=== PATIENT | female | born 1945 | race Caucasian/White ===

== ENCOUNTER 2016-12-16 10:26 | Emergency (ER) | payer MEDICARE ==
[~2016-12-16] VITALS: Ht 167.6 cm; Wt 57.9 kg
[~2016-12-16 10:26] MED LIST: BP MED; ESTR.9; GEMF600
[2016-12-16 10:33] VITALS: BP 190/98; PULSE 98; RESP 18; TEMP 98.1; O2SAT 95
--- NOTE | 2016-12-16 10:51 | PD ---
HPI Chief Complaint: Fall Time Seen by Provider: 10:51 Travel History International Travel<30 days: No Contact w/Intl Traveler<30days: No Traveled to known affect area: No History of Present Illness HPI Patient says she slipped and fell and tried to break her fall with her left extended arm 5 days ago. Since then patient has been having pain in her wrist area on the left arm. She wanted to come and be checked. She is otherwise fine and in no apparent distress. There is a little bit of bruising and swelling over the wrist. [facility] Past Medical History Narrative Medical List of her past medical, surgical, social and family history was reviewed. Arthritis: No High Cholesterol: Yes Hypertension: Yes Menopausal: Yes Tubal Ligation: Yes Past Surgical History Abdominal Surgery: Yes (HERNIA REPAIR) Social History Alcohol Use: No Tobacco Use: Yes (1 PPD) Substance Use: No Allergies-Medications (Allergen,Severity, Reaction): Coded Allergies: No Known Allergies (Unverified , 12/16/16) Comments List of her allergies reviewed from the nursing note. Reported Meds & Prescriptions Reported Meds & Active Scripts Active Reported Synthroid (Levothyroxine Sodium) 25 Mcg Tab 25 Mcg PO DAILY Metoprolol Tartrate 25 Mg Tab 25 Mg PO DAILY Metformin (Metformin HCl) 500 Mg Tab 500 Mg PO BIDPC With meals Narrative Medication List of her home medications reviewed from the nursing note. Review of Systems Except as stated in HPI: all other systems reviewed are Neg Physical Exam Narrative GENERAL: Awake, alert, no obvious distress SKIN: Focused skin assessment warm/dry. Slight bruising and swelling of her left wrist on the extensor surface. Decent range of motion HEAD: Atraumatic. Normocephalic. EYES: Pupils equal and round. No scleral icterus. No injection or drainage. ENT: No nasal bleeding or discharge. Mucous membranes pink and moist. NECK: Trachea midline. No JVD. CARDIOVASCULAR: Regular rate and rhythm. No murmur appreciated. RESPIRATORY: No accessory muscle use. Clear to auscultation. Breath sounds equal bilaterally. GASTROINTESTINAL: Abdomen soft, non-tender, nondistended. Hepatic and splenic margins not palpable. MUSCULOSKELETAL: No obvious deformities. No clubbing. No cyanosis. No edema. NEUROLOGICAL: Awake and alert. No obvious cranial nerve deficits. Motor grossly within normal limits. Normal speech. PSYCHIATRIC: Appropriate mood and affect; insight and judgment normal. Data Data Last Documented VS Orders Wrist, Complete ([id number]) (12/16/16 ) Splint Or Brace Apply/Monitor (12/16/16 12:04) Cockup Hand Splint (12/16/16 ) MDM Medical Decision Making Medical Screen Exam Complete: Yes Emergency Medical Condition: Yes Medical Record Reviewed: Yes Differential Diagnosis Wrist sprain, fracture Narrative Course 12 PM x-ray was back and does not show any fracture. I'll apply a wrist splint and discharge her home. Procedures EKG Prior to Arrival: No Diagnosis Primary Impression: Wrist sprain Qualified Code: S63.502A - Wrist sprain, left, initial encounter Referrals: Primary Care Physician 3 days Additional Instructions: Please return to the ER if the condition worsens or any other new concerns. Keep the splint on at all times of the day. Follow-up with your primary care in couple days. Med/Other Pt SpecificInfo: No Change to Meds Disposition: DISCHARGE HOME Condition: Morelia Alicea MD Dec 16, 2016 10:51 in couple days. Med/Other Pt SpecificInfo: No Change to Meds Disposition: DISCHARGE HOME Condition: Morelia Alicea MD Dec 16, 2016 10:51
[2016-12-16] MEDS ORDERED: SYNT25TA PO (10:57)
[2016-12-16] MEDS ORDERED: METF500T PO (10:57)
[2016-12-16] MEDS ORDERED: METO25TA3 PO (10:57)
--- NOTE | 2016-12-16 11:49 | RADHPO ---
EXAM DATE/TIME: 12/16/2016 11:29 [facility] COMPARISON: No previous studies available for comparison. INDICATIONS : Left wrist pain after slipping and falling Monday. MEDICAL HISTORY : Hypertension. Diabetes mellitus type II. SURGICAL HISTORY : None. ENCOUNTER: Initial ACUITY: 1 day PAIN SCORE: 5/10 LOCATION: Left medial wrist. FINDINGS: There are degenerative changes present in the carpus. Alignment is anatomic. A fracture is not appr eciated. CONCLUSION: Degenerative changes. Otherwise, negative. Je Finch MD FACR on December 16, 2016 at 11:40 Board Certified Radiologist. This report was verified electronically.
[2016-12-16 12:05] VITALS: BP 178/88; PULSE 73; RESP 14; O2SAT 94
== END 2016-12-16 12:10 | disposition home or self-care (01) ==
LOC: PHED 10:26
DX: S63.502A Unspecified sprain of left wrist, initial encounter (principal); E78.00 Pure hypercholesterolemia, unspecified; I10 Essential (primary) hypertension; F17.210 Nicotine dependence, cigarettes, uncomplicated; W01.0XXA Fall on same level from slipping, tripping and stumbling without subsequent striking against object, initial encounter; Y93.9 Activity, unspecified; Y92.9 Unspecified place or not applicable; Y99.8 Other external cause status
CPT/HCPCS: 73110; 99283; L3908

== ENCOUNTER 2017-08-30 09:54 | Inpatient (IN) | payer MEDICARE ==
[~2017-08-30] VITALS: Ht 167.6 cm; Wt 56.0 kg
[2017-08-30] VITALS (13 sets, daily range): BP systolic 119–147; BP diastolic 65–88; PULSE 43–78; RESP 18–22; TEMP 97.3–98.6; O2SAT 95–100
[~2017-08-30 09:54] MED LIST changes: -BP MED; -ESTR.9; -GEMF600; +METF500T PO; +METO25TA3 PO; +SYNT25TA PO
[2017-08-30] MEDS ORDERED: SODIUM CHLORIDE 0.9% FLUSH 10 ML FLUSH IVF PRN (10:00)
[2017-08-30] MEDS ORDERED: NITROGLYCERIN 0.4 MG SL 25 TABS/BTL SL STA (10:00)
[2017-08-30] MEDS ORDERED: SODIUM CHLOR 0.9% 1000 ML INJ 1,000 ML IV ONE (10:00)
[2017-08-30] MEDS ORDERED: HEPARIN SODIUM - IV 10,000 UNITS/10 ML VIAL IV PUSH STA (10:00)
[2017-08-30] MEDS ORDERED: NITROGLYCERIN-D5W 50 MG/250 ML 250 ML IV PRN (10:00)
[2017-08-30] MEDS ORDERED: HEPARIN-NS/PF INJ 1,000 ML ONE (10:07)
[2017-08-30] MEDS ORDERED: MIDAZOLAM HCL 5 MG/5 ML VIAL ONE (10:08)
[2017-08-30] MEDS ORDERED: HEPARIN SODIUM - IV 10,000 UNITS/10 ML VIAL ONE (10:08)
--- NOTE | 2017-08-30 10:15 | RADRPT ---
EXAM DATE/TIME: 08/30/2017 09:58 [facility] COMPARISON: No previous studies available for comparison. INDICATIONS : Stemi alert. MEDICAL HISTORY : None. SURGICAL HISTORY : None. ENCOUNTER: Initial ACUITY: 1 day PAIN SCORE: 8/10 LOCATION: Bilateral chest FINDINGS: A single view of the chest demonstrates the lungs to be symmetrically aerated without evidence of mas s, infiltrate or effusion. The cardiomediastinal contours are unremarkable. Osseous structures are intact. CONCLUSION: No acute disease. Je Finch MD FACR on August 30, 2017 at 10:13 Board Certified Radiologist. This report was verified electronically.
[2017-08-30 10:36] LABS: I-STAT POTASSIUM 3.9 MMOL/L (3.5-4.9); I-STAT SODIUM 141 MMOL/L (138-146)
[2017-08-30 10:37] LABS: AUTOMATED NEUTROPHIL # 4.3 TH/MM3 (1.8-7.7); BASOPHIL % 0.6 % (0.0-2.0); EOSINOPHIL # 0.2 TH/MM3 (0-0.4); EOSINOPHIL % 2.7 % (0.0-4.0); HEMATOCRIT 40.5 % (35.0-46.0); HEMO FLAGS DIFF FINAL; LYMPH % 24.4 % (9.0-44.0); LYMPHOCYTE # 1.7 TH/MM3 (1.0-4.8); MEAN CELL VOLUME 89.5 FL (80.0-100.0); MEAN CORPUSCULAR HEMOGLOBIN 29.1 PG (27.0-34.0); MEAN CORPUSCULAR HGB CONC 32.6 % (32.0-36.0); MONO % 9.6 % (0.0-8.0); NEUT % 62.7 % (16.0-70.0); PLATELET COUNT 214 TH/MM3 (150-450); RED BLOOD COUNT 4.53 MIL/MM3 (4.00-5.30); RED CELL DISTRIBUTION WIDTH 13.1 % (11.6-17.2); WHITE BLOOD COUNT 6.8 TH/MM3 (4.0-11.0)
[2017-08-30 10:46] LABS: APTT (PATIENT) 21.1 SEC (24.3-30.1); INTERNATIONAL NORMALIZED RATIO 1.1 RATIO; PROTHROMBIN TIME - PATIENT 11.1 SEC (9.8-11.6)
[2017-08-30] MEDS ORDERED: CANGRELOR TETRASODIUM 50,000 MCG VIAL ONE (10:53)
[2017-08-30] MEDS ORDERED: TICAGRELOR 90 MG TAB PO ONE (10:53)
[2017-08-30] MEDS ORDERED: STERILE WATER FOR INJECTION 10 ML VIAL ONE (10:53)
[2017-08-30 11:05] LABS: CREATINE KINASE 57 U/L (26-192); MAGNESIUM 1.8 MG/DL (1.5-2.5)
--- NOTE | 2017-08-30 12:19 | PD ---
HPI Chief Complaint: STEMI Alert Time Seen by Provider: 10:00 Travel History International Travel<30 days: No Contact w/Intl Traveler<30days: No Traveled to known affect area: No History of Present Illness HPI This is a 71-year-old female who presents to the emergency department having had onset of chest discomfort when she took her pills this morning. It was in the middle of her chest, constant, dull, and she felt like she couldn't get her pills down. She went to drink some water and then took a shower and she started to feel very weak and started to vomit multiple times. Her chest pain persisted so she called 911. She has a history of hypertension and diabetes. She's never had a heart attack before. EMS brought her in as a STEMI alert. [facility] Past Medical History Arthritis: No High Cholesterol: Yes Diabetes: Yes Patient Takes Glucophage: No Hypertension: Yes Thyroid Disease: Yes Tetanus Vaccination: Unknown Influenza Vaccination: No ?: Not Menopausal: Yes Tubal Ligation: Yes Past Surgical History Abdominal Surgery: Yes (HERNIA REPAIR) Social History Alcohol Use: No Tobacco Use: No Substance Use: No Allergies-Medications (Allergen,Severity, Reaction): Coded Allergies: No Known Allergies (Unverified Allergy, Unknown, 08/30/17) Reported Meds & Prescriptions Reported Meds & Active Scripts Active Reported Synthroid (Levothyroxine Sodium) 25 Mcg Tab 25 Mcg PO DAILY Metoprolol Tartrate 25 Mg Tab 25 Mg PO DAILY Metformin (Metformin HCl) 500 Mg Tab 500 Mg PO BIDPC With meals Review of Systems Except as stated in HPI: all other systems reviewed are Neg Physical Exam Narrative GENERAL: Pale, unwell-appearing SKIN: Focused skin assessment warm and dry. HEAD: Atraumatic. Normocephalic. EYES: Pupils equal and round. No injection or drainage. ENT: Moist mucous membranes NECK: Trachea midline. CARDIOVASCULAR: Regular rate and rhythm. No murmur appreciated. RESPIRATORY: Clear to auscultation. Breath sounds equal bilaterally. GASTROINTESTINAL: Abdomen soft, non-tender, nondistended. MUSCULOSKELETAL: No obvious deformities. NEUROLOGICAL: Awake and alert. No obvious cranial nerve deficits. Moving all extremities. PSYCHIATRIC: Appropriate mood and affect; insight and judgment normal. Data Data Last Documented VS Vital Signs Date Time Temp Pulse Resp B/P (MAP) Pulse Ox O2 Delivery O2 Flow Rate FiO2 08/30/17 09:57 97.3 49 22 98 08/30/17 09:57 Nasal Cannula 2.00 Orders Orders Cardiac Catheterization (08/30/17 ) Troponin I (08/30/17 10:00) Ckmb (Isoenzyme) Profile (08/30/17 10:00) Complete Blood Count With Diff (08/30/17 10:00) I-Stat Profile (08/30/17 10:00) I-Stat Creatinine (08/30/17 10:00) Calcium (08/30/17 10:00) Magnesium (Mg) (08/30/17 10:00) Prothrombin Time / Inr (Pt) (08/30/17 10:00) Act Partial Throm Time (Ptt) (08/30/17 10:00) B-Type Natriuretic Peptide (08/30/17 10:00) Chest, Single Ap (08/30/17 10:00) Electrocardiogram (08/30/17 10:00) Oxygen Administration (08/30/17 10:00) Iv Access Insert/Monitor (08/30/17 10:00) Oximetry (08/30/17 10:00) Sodium Chlor 0.9% 1000 Ml Inj (Ns 1000 M (08/30/17 10:00) Sodium Chloride 0.9% Flush (Ns Flush) (08/30/17 10:00) Nitroglycerin Sl (Nitrostat Sl) (08/30/17 10:00) Nitroglycerin-D5w 50 Mg/250 Ml (Nitrogly (08/30/17 10:00) Heparin Inj (Heparin Inj) (08/30/17 10:00) Admit Order (Ed Use Only) (08/30/17 10:02) Labs Laboratory Tests Test 08/30/17 10:00 White Blood Count 6.8 TH/MM3 Red Blood Count 4.53 MIL/MM3 Hemoglobin 13.2 GM/DL Bedside Hemoglobin 13.3 G/DL Hematocrit 40.5 % Bedside Hematocrit 39.0 % Mean Corpuscular Volume 89.5 FL Mean Corpuscular Hemoglobin 29.1 PG Mean Corpuscular Hemoglobin Concent 32.6 % Red Cell Distribution Width 13.1 % Platelet Count 214 TH/MM3 Mean Platelet Volume 10.0 FL Neutrophils (%) (Auto) 62.7 % Lymphocytes (%) (Auto) 24.4 % Monocytes (%) (Auto) 9.6 % Eosinophils (%) (Auto) 2.7 % Basophils (%) (Auto) 0.6 % Neutrophils # (Auto) 4.3 TH/MM3 Lymphocytes # (Auto) 1.7 TH/MM3 Monocytes # (Auto) 0.7 TH/MM3 Eosinophils # (Auto) 0.2 TH/MM3 Basophils # (Auto) 0.0 TH/MM3 CBC Comment DIFF FINAL Differential Comment Prothrombin Time 11.1 SEC Prothromb Time International Ratio 1.1 RATIO Activated Partial Thromboplast Time 21.1 SEC Bedside Sodium 141 MMOL/L Bedside Potassium 3.9 MMOL/L Bedside Chloride 108 MMOL/L Bedside Blood Urea Nitrogen 18 MG/DL Bedside Creatinine 0.7 MG/DL Bedside Glucose 247 MG/DL Calcium Level 8.6 MG/DL Magnesium Level 1.8 MG/DL Total Creatine Kinase 57 U/L Troponin I LESS THAN 0.02 NG/ML B-Type Natriuretic Peptide 73 PG/ML MDM Medical Decision Making Medical Screen Exam Complete: Yes Emergency Medical Condition: Yes Interpretation(s) EKG: Sinus rhythm, Inferior ST elevation SD with reciprocal changes No leukocytosis Electrolytes are reassuring BNP is 73 Chest x-ray: No acute process Differential Diagnosis Acute coronary syndrome, pulmonary embolism, pleural effusion, pneumonia, pill esophagitis Narrative Course This is a 71-year-old female who presents to the emergency department with chest discomfort that started this morning associated with weakness and multiple episodes of vomiting. EKG demonstrates an inferior ST elevation SD. I spoke to Dr. Peralta who was on-call for cardiology. Patient was rushed to the catheter lab. Heparin was started. She received aspirin with EMS. I spent some time talking to the patient's son on the phone. Critical Care Narrative Aggregate critical care time was 25 minutes. Time to perform other separately billable procedures was not included in the critical care time. My time did not include minutes spent treating any other patients simultaneously or on activities that did not directly contribute to the patient's treatment. The services I provided to this patient were to treat and/or prevent clinically significant deterioration that could result in: Disability, I provided critical care services requiring my management, as noted below: Chart data review, documentation time, medication orders and management, vital sign assessments/reviewing monitor data, ordering and reviewing lab tests, ordering and interpreting/reviewing x-rays and diagnostic studies, care of the patient and discussion of the patient with the admitting physicians. Diagnosis Primary Impression: STEMI (ST elevation myocardial infarction) Qualified Codes: I21.3 - ST elevation (STEMI) myocardial infarction of unspecified site Admitting Information Admitting Physician Requests: it Lurdes Cerrato MD Aug 30, 2017 12:19
[2017-08-30] MEDS ORDERED: IOHEXOL 350 MG/ML 100 ML BTL (for Cath Lab) OTHER ONE (12:30)
[2017-08-30] MEDS ORDERED: SODIUM CHLOR 0.9% 1000 ML INJ 1,000 ML IV SCH (13:12)
[2017-08-30] MEDS ORDERED: ACETAMINOPHEN 325 MG TAB PO PRN (13:15)
[2017-08-30] MEDS: ASPIRIN 81 MG CHEW TAB PO SCH (16:53)
[2017-08-30 18:17] LABS: AUTOMATED NEUTROPHIL # 5.4 TH/MM3 (1.8-7.7); BASOPHIL % 0.3 % (0.0-2.0); EOSINOPHIL % 0.5 % (0.0-4.0); HEMATOCRIT 36.4 % (35.0-46.0); HEMO FLAGS DIFF FINAL; LYMPH % 11.2 % (9.0-44.0); LYMPHOCYTE # 0.8 TH/MM3 (1.0-4.8); MEAN CELL VOLUME 89.1 FL (80.0-100.0); MEAN CORPUSCULAR HEMOGLOBIN 29.8 PG (27.0-34.0); MEAN CORPUSCULAR HGB CONC 33.5 % (32.0-36.0); MONO % 8.7 % (0.0-8.0); NEUT % 79.3 % (16.0-70.0); PLATELET COUNT 215 TH/MM3 (150-450); RED BLOOD COUNT 4.09 MIL/MM3 (4.00-5.30); RED CELL DISTRIBUTION WIDTH 12.9 % (11.6-17.2); WHITE BLOOD COUNT 6.8 TH/MM3 (4.0-11.0)
--- NOTE | 2017-08-30 19:00 | CATHPROC ---
[facility] HIS Report Study Information Study Number Admission Scheduled Start Study Start [id number] Aug 30 2017 9:54AM 08/30/2017 Aug 30 2017 10:04AM [place] Service Cardiac Catheterization Admit Source Facility Department Emergency department [facility] - [facility] [employer] Physician and Clinical Staff Initial Rafa Wood Medicaid Analyst Dalia Morgan,RN Recorder Zina Aguilar,RT(R) Scrub Dalia Lugo,RT(R) Procedures Performed Procedure Location (Site) Vessel Name Angiogram LV LV Ventricle Coronary Angiograms LCA Left Coronary Coronary Angiograms RCA Right Coronary Drug Eluting Inflatio PLV Prox Right Coronary Drug Eluting Inflatio RCA Mid Right Coronary L Heart Cath PTCA PLV Prox Right Coronary PTCA RCA Mid Right Coronary Wire insertion Fem Art (right) Femoral Art Equipment Time Java Sdet Description Size Mfg Part Number Used/Scraped WIRE, BALANCE MIDDLEWEIGHT [id number] 11:04 [employer] 190CM Used 190CM *[id number] TRANSDUCER, TRUWAVE [id number] 10:06 ROSEN MATA * Used W/STOCKCOCK *[id number] BALLOON, 3.5 [place] [id number] 10:53 [employer] 3.5 12MM Used QUANTUM APEX MR *[id number] *[id number] [id number] *[id number] 534-620T *[id number] PIGTAIL ANG. 145 INFINITI [id number] CATHETER *[id number] *[id number] 11:16 [facility] [facility] ANGIOSEAL, FR6 VIP FR 6 Used *[id number] 10:06 [employer] IND[employer] PACK, CCL CUSTOM * Used *[id number] 10:06 MEDLINE PACER PEN, SKIN DUAL W/ RULER * Used *[id number] 10:36 [employer] BALLOON, 2.0 X 12MM EUPHORA 12MM Used *[id number] EXPORTAP 10:36 [employer] CATHETER, EXPORT ASPIRATON Used *[id number] 11:08 [employer] STENT, 2.75 15MM CASEY 2.75 15MM Used *[id number] [id number] 10:49 [employer] STENT, 2.75 22MM CASEY 2.75 22MM Used *[id number] 10:44 [employer] 30 MILDRED INDEFLATOR Used *[id number] 10:24 [employer] SHEATH, FR6.5 PRELUDE 11CM FR 6.5 038ACT Used *[id number] [id number] 10:06 [employer] MEDICAL WIRE, 3MMJ .035 180CM 180CM Used *[id number] PROBE COVER, STERILE [id number] 10:06 [employer] MEDICAL * Used ULTRASOUND W/ GEL *[id number] 10:06 NAMIC MANIFOLD, 4 PORT * Used *[id number] 10:06 NAMIC TUBING, HIGH PRESSURE 48" 48" Used *7322745 10:06 [employer] OMNIPAQUE, 350 MG, 150ML 150ML [id number] Used [id number] 10:06 [facility] BLANKET,WARM AIR CCL * Used *[id number] Equipment Model, Serial, Lot Number and Expiration Data Description Model Number Serial Number Lot Number Expiration Date ANGIOSEAL, FR6 VIP [id number] 05-11-2018 BALLOON, 3.5 12MM NC QUANTUM [id number] 06-01-2020 APEX MR CATHETER, EXPORT ASPIRATON [id number] 04-07-2019 STENT, 2.75 15MM CASEY [id number] 04-30-2019 STENT, 2.75 22MM CASEY [id number] 03-14-2019 History: Allergies Allergy Reaction No Known Allergies Labs Hgb (g/dl) Hct (%) WBC (l/cumm) Platelets (thousands) 11.60-17.00 35.00-51.00 4.00-11.00 150.00-450.00 13.2 40.5 6.8 214 Glucose (mg/dl) BUN (mg/dl) Creatinine (mg/dl) BUN:Creatinine (1:x) 74.00-106.00 7.00-18.00 0.50-1.30 10.00-20.00 247 18 0.7 25.7 Na (meq/l) K (meq/l) 136.00-145.00 3.50-5.10 141 3.9 INR (PTT:PT) 0.90-1.10 1.1 Medication Medication Total Dose (Bolus/Oral) Medication Total Dosage/Unit 1% XYLOCAINE 20 mL BRILLINTA 180 mg FENTANYL 50 mcg HEPARIN 3000 units VERSED 2 mg Medications (Bolus/Oral) Medication Time Given Dosage/Unit Administered By Reason 08/30/2017 10:28:12 VERSED 1 mg Rubio Morganon AM 1 mg VERSED given in lab by Dalia Morgan RN in Left Antecubital via Peripheral IV. Ordered by Rafa Ruggiero. 08/30/2017 10:29:07 1% XYLOCAINE 20 mL Rafa Peralta AM 20 mL 1% XYLOCAINE given in lab by Rafa Peralta in Right Groin via Subcutaneous. 08/30/2017 10:29:14 FENTANYL 25 mcg Rubio Morganon AM 25 mcg FENTANYL given in lab by Dalia Morgan RN in Left Antecubital via Peripheral IV. Ordered by Rafa Peralta. 08/30/2017 10:38:07 HEPARIN 3000 units Dalia Morgan AM 3000 units HEPARIN given in lab by Dalia Morgan RN in Left Antecubital via Peripheral IV. Ordered by Rafa Peralta. 08/30/2017 11:04:35 VERSED 1 mg Rubio Morganon AM 1 mg VERSED given in lab by Dalia Morgan RN in Right Wrist via Peripheral IV. Ordered by Rafa Peralta. 08/30/2017 11:05:45 FENTANYL 25 mcg Dalia Morgan AM 25 mcg FENTANYL given in lab by Dalia Morgan RN in Right Wrist via Peripheral IV. Ordered by Rafa Mcfarland. 08/30/2017 11:22:17 BRILLINTA 180 mg Dalia Morgan AM 180 mg BRILLINTA given in lab by Dalia Morgan RN in Per mouth via Oral. Ordered by Rafa Peralta . Medication (Drip) Medication Time Given Dosage/Unit Concentration/Unit Diluent (ml) Solution 08/30/2017 10:17:06 IV Solutions 50 mL (IV) NaCl .9 AM IV Solutions given in lab by Dalia Morgan RN in Left Antecubital via Peripheral IV. Pump/Drip Flow using NaCl .9. 08/30/2017 10:17:06 IV Solutions 50 mL (IV) NaCl .9 AM IV Solutions given in lab by Dalia Morgan RN in Right Wrist via Peripheral IV. Pump/Drip Flow usin g NaCl .9. 08/30/2017 10:57:32 KENGREAL BOLUS 8.4 mL AM 8.4 mL KENGREAL BOLUS given in lab by Dalia Morgan, RN in Left Antecubital via Peripheral IV. Order ed by Rafa Peralta. 08/30/2017 11:00:28 KENGREAL DRIP 4 mcg/kg/min 50 mg 250 NaCl .9 AM 4 mcg/kg/min KENGREAL DRIP given in lab by Dalia Morgan, RN in Left Antecubital via Peripheral IV. Pump/Drip Flow = 67.2 ml/hr using NaCl .9 with a concentration of 50 mg in 250 ml. Ordered by Rafa Peralta. Initial Case Assessment Cardiovascular HR Rhythm NIBP Chest Pain 44 escobar w/ STelevation 149/77 6 Edema Present Skin color Skin None Normal Warm Circulatory - Right Pulses Dorsalis Pedis Femoral d 2 Scale (0,1,2,3,4,d) Circulatory - Left Pulses Dorsalis Pedis Femoral d 2 Scale (0,1,2,3,4,d) Neurological State Oriented to time-place- Alert Moves all extremities person Respiration - General Respiration Rate SpO2 (%) (B/min) 13 100 Final Case Assessment Cardiovascular HR Rhythm NIBP Chest Pain 57 escobar 115/47 0 Edema Present Skin color Skin None Normal Warm Circulatory - Right Pulses Dorsalis Pedis Femoral d 2 Scale (0,1,2,3,4,d) Circulatory - Left Pulses Dorsalis Pedis Femoral d 2 Scale (0,1,2,3,4,d) Neurological State Oriented to time-place- Alert Moves all extremities person Respiration - General Respiration Rate SpO2 (%) (B/min) 17 97 Chronological Log Time Study Chronological Log 10:09:49 Patient arrived via Bed. Vitals capture started with the following parameters, Patient=Adult, Interval=5 min, Initial Pr rwntfe=197 mmHg, 10:11:19 Deflation Rate=5 mmHg, Cuff placed on Left Arm 10:11:59 HR=44 bpm, GAZW=701/77 mmhg, GhE9=260 %, Resp=13 B/min 10:13:51 Reference ECG taken Assessment: Initial Case, HR=44 BPM, Rhythm=escobar w/ STelevation, JWWQ=953/77 mmhg, Chest Pain= 6, Edema=None, Color=Normal, Skin = Warm Right Pulses: Eddie Ped=d, Femoral=2 10:15:39 Left Pulses: Eddie Ped=d, Femoral=2 Neurological: State=Alert, Ox3, BENNETT Respiration: Resp=13 B/min, GeX0=931 % 10:16:40 Patient Name, D.O.B, / [place] Verified By R.N. 10:16:43 Consent signed by the physician and the patient and verified by the [facility] [employer] staff. 10:17:01 Patient has been NPO for Less than 6Hrs. 10:17:02 HR=46 bpm, BZGC=063/64 mmhg, TnM2=159.0 %, Resp=14 B/min 10:17:03 Patient Warmer Placed on the Table. 10:17:03 Antonella Prominences Protected 10:17:05 A # 20 IV was noted in the Antecubital (left). Grade = 0 10:17:05 A # 20 IV was noted in the Wrist (right). Grade = 0 10:17:06 IV Solutions given in lab by Dalia Morgan RN in Left Antecubital via Peripheral IV. Pump /Drip Flow using NaCl .9. 10:17:06 IV Solutions given in lab by Dalia Morgan RN in Right Wrist via Peripheral IV. Pump/Drip Flow using NaCl .9. 10:19:41 Pressure channel 1 zeroed. 10:21:55 HR=49 bpm, NIBP=83/48 mmhg, PiW9=062.0 %, Resp=13 B/min 10:25:44 MD arrived. 10:27:25 HR=48 bpm, BHJR=926/73 mmhg, SpO2=97.0 %, Resp=17 B/min 10:28:12 1 mg VERSED given in lab by Dalia Morgan RN in Left Antecubital via Peripheral IV. Order ed by Rafa Peralta. Time Out. Correct patient, correct procedure, correct physician, power injector loaded, or not loaded with contrast with 10:28:40 surgical team present. Time Out Concurred by MD and individual staff in procedure. 10:28:49 Case Start 10:29:07 20 mL 1% XYLOCAINE given in lab by Rafa Peralta in Right Groin via Subcutaneous. 10:29:14 25 mcg FENTANYL given in lab by Dalia Morgan RN in Left Antecubital via Peripheral IV. O rdered by Rafa Peralta. 10:29:58 Access site was Right Femoral Artery. 10:30:05 A SHEATH, FR6.5 PRELUDE 11CM FR 6.5 was advanced into the Fem Art (right) using the Percuta neous technique. A AR MOD INFINITI CATHETER FR 6 was advanced over a wire. OMNIPAQUE, 350 MG, 150ML 150ML was us ed for 10:31:28 injections. 10:32:00 The RCA was injected and visualized at various angles. OMNIPAQUE, 350 MG, 150ML 150ML used . 10:32:05 HR=46 bpm, YBTY=320/65 mmhg, SpO2=97.0 %, Resp=15 B/min 10:33:12 Activated Clotting Time Drawn After removing the current catheter a JL 4.0 INFINITI CATHETER FR 6 was advanced over a WIRE, 3 MMJ .035 180CM 10:33:52 180CM. 10:33:58 The LCA was injected and visualized at various angles. OMNIPAQUE, 350 MG, 150ML 150ML used . Recorded Pressure: Ao, HR=60, Condition=Condition 1 10:34:21 (Aorta) Ao 138/65/93 10:35:21 Catheter was removed 10:36:25 A AL 1 GUIDE CATHETER FR 6 was advanced over a wire. OMNIPAQUE, 350 MG, 150ML 150ML was use d for injections. 10:36:58 HR=52 bpm, MNRZ=565/69 mmhg, SpO2=97.0 %, Resp=20 B/min 10:37:30 ACT (Normal Range 90-180) = 211 3000 units HEPARIN given in lab by Dalia Morgan, RN in Left Antecubital via Peripheral IV. Or dered by Kathryn, 10:38:07 Rafa. 10:40:14 A WIRE, ATW MARKER 195CM 195CM was inserted via Fem Art (right). 10:40:18 Interventional wire has crossed the lesion A CATHETER, EXPORT ASPIRATON was advanced over a wire. OMNIPAQUE, 350 MG, 150ML 150ML was used for 10:40:43 injections. 10:41:03 [place] Catheter was removed 10:42:01 HR=46 bpm, COLC=793/56 mmhg, SpO2=98.0 %, Resp=17 B/min A BALLOON, 2.0 X 12MM EUPHORA 12MM was inserted over WIRE, ATW MARKER 195CM 195CM via the Fem A rt 10:43:02 (right). A BALLOON, 2.0 X 12MM EUPHORA 12MM over a WIRE, ATW MARKER 195CM 195CM in the RCA Mid was infla nirmal using 10:43:33 a 30 MILDRED INDEFLATOR at 16 mildred for 10 sec. A BALLOON, 2.0 X 12MM EUPHORA 12MM over a WIRE, ATW MARKER 195CM 195CM in the RCA Mid was infla nirmal using 10:43:55 a 30 MILDRED INDEFLATOR at 16 mildred for 12 sec. 10:44:35 Activated Clotting Time Drawn 10:45:40 Balloon Removed. 10:46:58 HR=54 bpm, CRDW=013/51 mmhg, SpO2=99.0 %, Resp=19 B/min A STENT, 2.75 22MM CASEY 2.75 22MM was advanced through a AL 1 GUIDE CATHETER FR 6 over a WIRE, ATW 10:48:56 MARKER 195CM 195CM. A STENT, 2.75 22MM CSAEY 2.75 22MM was deployed using a 30 MILDRED INDEFLATOR at 15 atmospheres for 23 seconds 10:50:08 in the RCA Mid. 10:50:43 ACT (Normal Range 90-180) = 297 10:51:20 Re-inflated the stent balloon in the RCA Mid to 21 MILDRED for 33 seconds. 10:51:55 HR=51 bpm, JWZQ=371/53 mmhg, SpO2=99.0 %, Resp=19 B/min 10:52:26 Delivery device removed A BALLOON, 3.5 12MM NC QUANTUM APEX MR 3.5 12MM was inserted over WIRE, ATW MARKER 195CM 195CM via the 10:53:47 Fem Art (right). A BALLOON, 3.5 12MM NC QUANTUM APEX MR 3.5 12MM over a WIRE, ATW MARKER 195CM 195CM in the RCA Mid 10:55:36 was inflated using a 30 MILDRED INDEFLATOR at 16 mildred for 19 sec. A BALLOON, 3.5 12MM NC QUANTUM APEX MR 3.5 12MM over a WIRE, ATW MARKER 195CM 195CM in the RCA Mid 10:56:21 was inflated using a 30 MILDRED INDEFLATOR at 18 midlred for 12 sec. 10:56:59 HR=52 bpm, HPAY=801/57 mmhg, SpO2=97.0 %, Resp=19 B/min A BALLOON, 3.5 12MM NC QUANTUM APEX MR 3.5 12MM over a WIRE, ATW MARKER 195CM 195CM in the RCA Mid 10:57:03 was inflated using a 30 MILDRED INDEFLATOR at 16 mildred for 18 sec. 8.4 mL KENGREAL BOLUS given in lab by Dalia Morgan RN in Left Antecubital via Peripheral IV. Ordered by Kathryn, 10:57:32 Rafa. 10:58:12 Balloon Removed. 4 mcg/kg/min KENGREAL DRIP given in lab by Dalia Morgan RN in Left Antecubital via Periphera l IV. Pump/Drip Flow 11:00:28 = 67.2 ml/hr using NaCl .9 with a concentration of 50 mg in 250 ml. Ordered by Rafa Peralta. 11:01:31 ATW wire readjusted to the PDA. 11:01:47 Interventional wire has crossed the lesion 11:02:00 HR=43 bpm, ZMWO=735/53 mmhg, MoO8=947.0 %, Resp=17 B/min A BALLOON, 2.0 X 12MM EUPHORA 12MM was inserted over WIRE, ATW MARKER 195CM 195CM via the Fem A rt 11:02:00 (right). 11:03:41 Balloon Removed. 11:04:01 Wire removed 11:04:35 1 mg VERSED given in lab by Dalia Morgan, DHRUV in Right Wrist via Peripheral IV. Ordered by Rafa Peralta. 11:04:39 A WIRE, BALANCE MIDDLEWEIGHT 190CM 190CM was inserted via Fem Art (right). 11:05:05 Interventional wire has crossed the lesion 11:05:45 25 mcg FENTANYL given in lab by Dalia Morgan, DHRUV in Right Wrist via Peripheral IV. Ordere d by Rafa Peralta. A BALLOON, 2.0 X 12MM EUPHORA 12MM was inserted over WIRE, BALANCE MIDDLEWEIGHT 190CM 190CM via the 11:06:17 Fem Art (right). A BALLOON, 2.0 X 12MM EUPHORA 12MM over a WIRE, BALANCE MIDDLEWEIGHT 190CM 190CM in the PLV Pro x was 11:06:42 inflated using a 30 MILDRED INDEFLATOR at 16 mildred for 10 sec. 11:06:59 HR=45 bpm, NCWY=432/51 mmhg, BgK2=146.0 %, Resp=20 B/min 11:08:03 Balloon Removed. A STENT, 2.75 15MM CASEY 2.75 15MM was advanced through a AL 1 GUIDE CATHETER FR 6 over a WIRE, BALANCE 11:08:47 MIDDLEWEIGHT 190CM 190CM. A STENT, 2.75 15MM CASEY 2.75 15MM was deployed using a 30 MILDRED INDEFLATOR at 12 atmospheres for 24 seconds 11:11:00 in the PLV Prox. 11:11:39 Delivery device removed 11:12:00 HR=48 bpm, NIBP=99/49 mmhg, SpO2=99.0 %, Resp=16 B/min 11:12:40 Wire removed 11:12:44 Catheter was removed A PIGTAIL ANG. 145 INFINITI CATHETER FR 6 was advanced over a wire. OMNIPAQUE, 350 MG, 150ML 15 0ML was 11:13:59 used for injections. Recorded Pressure: LV, HR=48, Condition=Condition 1 11:14:53 (Left Ventricle) LV 105/10/18 11:15:32 The LV was injected at 10 cc/sec for a total of 30. OMNIPAQUE, 350 MG, 150ML 150ML used. Recorded Pressure: LV, Ao, HR=50, Condition=Condition 1 11:16:09 (Left Ventricle) LV 112/12/19, (Aorta) Ao 106/49/72 11:16:55 HR=51 bpm, YZBJ=273/55 mmhg, SpO2=99.0 %, Resp=19 B/min 11:17:13 An injection in the Fem Art (right) was made through the SHEATH, FR6.5 PRELUDE 11CM FR 6.5 . 11:18:07 ANGIOSEAL, FR6 VIP FR 6 placement in the Fem Art (right) 11:19:20 Case End 11:19:26 Sterile dressing applied to site 11:19:27 No case complications noted. 11:19:28 Cine recording checked. 11:19:29 Bedside Report will be given. 11:19:30 Implantable Device card placed in patient's chart. 11:19:42 A Left Heart Cath was performed. 11:21:58 HR=57 bpm, YOSE=977/47 mmhg, SpO2=99.0 %, Resp=17 B/min 11:22:17 180 mg BRILLINTA given in lab by Dalia Morgan, DHRUV in Per mouth via Oral. Ordered by Rafa Ruggiero. Assessment: Final Case, HR=57 BPM, Rhythm=escobar, ACPA=685/47 mmhg, Chest Pain=0, Edema=None, Color=Normal, Skin = Warm Right Pulses: Eddie Ped=d, Femoral=2 11:26:27 Left Pulses: Eddie Ped=d, Femoral=2 Neurological: State=Alert, Ox3, BENNETT Respiration: Resp=17 B/min, SpO2=97 % 11:26:38 Vitals capture stopped. End Study - Contrast Media Used In Study Contrast Total Opened (mL) Total Used (mL) Total Wasted (mL) Omnipaque 200 200 0 End Study - Maximum Contrast Load Max Contrast Load (mL) 400.0 End Study - Radiation Exposure Fluoro Time (minutes) 11.3 End Study - Patient Disposition Complications Transferred To No Telemetry Bed
[2017-08-30] MEDS: TICAGRELOR 90 MG TAB PO SCH (20:31)
[2017-08-30] MEDS: CARVEDILOL 6.25 MG TAB PO SCH (20:32)
[2017-08-30] MEDS ORDERED: ATORVASTATIN 80 MG TAB PO SCH (21:00)
[2017-08-31] VITALS (22 sets, daily range): BP systolic 96–108; BP diastolic 46–66; PULSE 60–98; RESP 16–18; TEMP 97.8–98.3; O2SAT 94–98
[2017-08-31 06:24] LABS: AUTOMATED NEUTROPHIL # 4.7 TH/MM3 (1.8-7.7); BASOPHIL % 0.3 % (0.0-2.0); EOSINOPHIL # 0.1 TH/MM3 (0-0.4); EOSINOPHIL % 1.8 % (0.0-4.0); HEMATOCRIT 37.8 % (35.0-46.0); HEMO FLAGS DIFF FINAL; LYMPH % 11.6 % (9.0-44.0); LYMPHOCYTE # 0.7 TH/MM3 (1.0-4.8); MEAN CELL VOLUME 88.5 FL (80.0-100.0); MEAN CORPUSCULAR HEMOGLOBIN 29.3 PG (27.0-34.0); MEAN CORPUSCULAR HGB CONC 33.1 % (32.0-36.0); MONO % 9.7 % (0.0-8.0); NEUT % 76.6 % (16.0-70.0); PLATELET COUNT 203 TH/MM3 (150-450); RED BLOOD COUNT 4.28 MIL/MM3 (4.00-5.30); RED CELL DISTRIBUTION WIDTH 13.4 % (11.6-17.2); WHITE BLOOD COUNT 6.1 TH/MM3 (4.0-11.0)
[2017-08-31 06:56] LABS: BICARBONATE 28.4 MEQ/L (21.0-32.0); POTASSIUM 3.8 MEQ/L (3.5-5.1)
[2017-08-31 07:00] LABS: HDL CHOLESTEROL 47.6 MG/DL (40.0-60.0)
[2017-08-31 07:36] LABS: CKMB 15.8 NG/ML (0.5-3.6)
[2017-08-31] MEDS: CARVEDILOL 6.25 MG TAB PO SCH (08:55)
[2017-08-31] MEDS: ASPIRIN 81 MG CHEW TAB PO SCH (08:55)
[2017-08-31] MEDS: TICAGRELOR 90 MG TAB PO SCH (08:56)
[2017-08-31] MEDS ORDERED: LISINOPRIL 5 MG TAB PO SCH (09:00)
--- NOTE | 2017-08-31 13:35 | EKG ---
Date Performed: 08/30/2017 Time Performed: 09:56:30 PTAGE: 71 years EKG: SINUS BRADYCARDIA BORDERLINE RIGHT AXIS DEVIATION LOW QRS VOLTAGE IN PRECORDIAL LEADS MODER ATE INTRAVENTRICULAR CONDUCTION DELAY MARKED ST ELEVATION, CONSIDER INFERIOR INJURY ACUTE FL NO PREVIOUS TRACING DOCTOR: Watson Love Interpretating Date/Time 08/31/2017 13:35:03
--- NOTE | 2017-08-31 14:12 | EKG ---
Date Performed: 08/31/2017 Time Performed: 06:42:38 PTAGE: 71 years EKG: Sinus rhythm with borderline 1st degree A-V block Indeterminate axis Possible inferior infarct - age undetermined Possible anterior infarct - age undetermined Lateral ST-T changes may be due to myocardial ischemia Generalized low QRS voltages Compared to previous tracing ST segment elevation in the inferior leads has resolved, T wave inversion is present consistent with reperfusion Abnormal ECG PREVIOUS TRACING : 08/30/2017 09.56 DOCTOR: Watson Love Interpretating Date/Time 08/31/2017 14:12:13
--- NOTE | 2017-08-31 14:50 | PD.CARD.PN ---
Subjective Subjective Remarks No CP or SOB, feels fine Objective Medications Current Medications Medications (Trade) Dose Ordered Sig/Meaghan Route Start Time Stop Time Status Last Admin (NS Flush) 2 ml UNSCH PRN IVF 08/30/17 10:00 Nitroglycerin/ Dextrose 250 ml @ 3 mls/hr TITRATE PRN IV 08/30/17 10:00 (Tylenol) 325 mg Q4H PRN PO 08/30/17 13:15 (Aspirin Chew) 81 mg DAILY PO 08/30/17 13:15 08/31/17 08:55 (Brilinta) 90 mg BID PO 08/30/17 21:00 08/31/17 08:56 (Coreg) 6.25 mg BID PO 08/30/17 21:00 08/31/17 08:55 (Prinivil) 5 mg DAILY PO 08/31/17 09:00 08/31/17 08:55 (Lipitor) 80 mg HS PO 08/30/17 21:00 08/30/17 20:32 Vital Signs / I&O Vital Signs Date Time Temp Pulse Resp B/P (MAP) Pulse Ox O2 Delivery O2 Flow Rate FiO2 08/31/17 13:01 86 08/31/17 12:00 64 08/31/17 11:00 98.3 71 16 99/57 (71) 94 08/31/17 11:00 76 08/31/17 10:00 80 08/31/17 09:00 98 08/31/17 08:00 86 08/31/17 07:54 97.8 69 18 108/66 (80) 94 08/31/17 07:00 71 08/31/17 06:38 64 08/31/17 06:00 66 08/31/17 05:00 66 08/31/17 04:00 64 08/31/17 03:00 98.1 72 96/46 (63) 98 08/31/17 03:00 64 08/31/17 02:00 70 08/31/17 01:00 64 08/31/17 00:27 98.3 73 108/49 (68) 94 08/31/17 00:00 64 08/30/17 23:00 66 08/30/17 22:00 68 08/30/17 21:00 74 08/30/17 20:00 78 08/30/17 20:00 98.2 76 128/75 (92) 96 08/30/17 19:00 69 08/30/17 18:00 72 08/30/17 17:00 72 08/30/17 16:00 70 08/30/17 15:00 72 08/30/17 15:00 98.6 70 18 125/65 (85) 100 I/O 08/30/17 08/30/17 08/30/17 08/31/17 08/31/17 08/31/17 07:00 15:00 23:00 07:00 15:00 23:00 Intake Total 340 ml 240 ml Output Total 520 ml Balance -180 ml 240 ml Intake Oral 240 ml 240 ml IV Total 100 ml Output Urine Total 520 ml # Voids 2 3 # Bowel Movements 0 Physical Exam GENERAL: In NAD SKIN: Warm and dry. HEAD: Normocephalic. EYES: No scleral icterus. No injection or drainage. NECK: Supple, trachea midline. No JVD or lymphadenopathy. CARDIOVASCULAR: Regular rate and rhythm without murmurs, gallops, or rubs. RESPIRATORY: Breath sounds equal bilaterally. No accessory muscle use. GASTROINTESTINAL: Abdomen soft, non-tender, nondistended. MUSCULOSKELETAL: No cyanosis, or edema. Groin stable Laboratory Laboratory Tests Test 08/30/17 17:49 08/31/17 06:05 White Blood Count 6.8 TH/MM3 6.1 TH/MM3 Red Blood Count 4.09 MIL/MM3 4.28 MIL/MM3 Hemoglobin 12.2 GM/DL 12.5 GM/DL Hematocrit 36.4 % 37.8 % Mean Corpuscular Volume 89.1 FL 88.5 FL Mean Corpuscular Hemoglobin 29.8 PG 29.3 PG Mean Corpuscular Hemoglobin Concent 33.5 % 33.1 % Red Cell Distribution Width 12.9 % 13.4 % Platelet Count 215 TH/MM3 203 TH/MM3 Mean Platelet Volume 9.9 FL 9.4 FL Neutrophils (%) (Auto) 79.3 % 76.6 % Lymphocytes (%) (Auto) 11.2 % 11.6 % Monocytes (%) (Auto) 8.7 % 9.7 % Eosinophils (%) (Auto) 0.5 % 1.8 % Basophils (%) (Auto) 0.3 % 0.3 % Neutrophils # (Auto) 5.4 TH/MM3 4.7 TH/MM3 Lymphocytes # (Auto) 0.8 TH/MM3 0.7 TH/MM3 Monocytes # (Auto) 0.6 TH/MM3 0.6 TH/MM3 Eosinophils # (Auto) 0.0 TH/MM3 0.1 TH/MM3 Basophils # (Auto) 0.0 TH/MM3 0.0 TH/MM3 CBC Comment DIFF FINAL DIFF FINAL Differential Comment Blood Urea Nitrogen 7 MG/DL Creatinine 0.60 MG/DL Random Glucose 151 MG/DL Calcium Level 8.6 MG/DL Sodium Level 143 MEQ/L Potassium Level 3.8 MEQ/L Chloride Level 110 MEQ/L Carbon Dioxide Level 28.4 MEQ/L Anion Gap 5 MEQ/L Estimat Glomerular Filtration Rate 99 ML/MIN Total Creatine Kinase 169 U/L Creatine Kinase MB 15.8 NG/ML Creatine Kinase MB % 9.4 % Triglycerides Level 154 MG/DL Cholesterol Level 160 MG/DL LDL Cholesterol 82 MG/DL HDL Cholesterol 47.6 MG/DL Cholesterol/HDL Ratio 3.36 RATIO Assessment and Plan Problem List: (1) STEMI (ST elevation myocardial infarction) ICD Codes: I21.3 - ST elevation (STEMI) myocardial infarction of unspecified site Status: Acute (2) CAD (coronary artery disease) ICD Codes: I25.10 - Atherosclerotic heart disease of [place] coronary artery without angina pectoris (3) Stented coronary artery ICD Codes: Z95.5 - Presence of coronary angioplasty implant and graft Assessment and Plan No angina, CHF or arrhythmias. Groin stable. Continue Brilinta, baby ASA, high dose statin and beta evelin. DC home. Will schedule f/u in our office as outpatient. Problem Qualifiers (1) STEMI (ST elevation myocardial infarction): Qualified Codes: I21.3 - ST elevation (STEMI) myocardial infarction of unspecified site Rafa Peralta MD Aug 31, 2017 14:50
--- NOTE | 2017-09-01 18:38 | MR ---
cc: MOOSE MARAVILLA MD DATE 09/01/[address]-elevation myocardial function, coronary artery disease, cardiomyopathy. PROCEDURE PERFORMED 1. Retrograde heart catheterization with left ventriculography and selective coronary angiography 2. Thrombectomy, angioplasty, and stenting of the right coronary artery. 3. Angioplasty and stenting of the posterolateral branch of the right coronary artery. 4. Moderate sedation. ACCESS SITE Right femoral artery. EQUIPMENT USED 5 [place] pigtail catheter, 5 [place] JL-4 and AR modified coronary catheters, AR-1 guide, marker and BMW wires, export thrombectomy catheter, 2.0 x 12 mL balloon for predilatation and 2.75 x 22 mm alek drug-eluting stent postdilated with 3.5 x 12 mm balloon to the proximal RCA and 2.75 x 16 mm alek drug-eluting stent at 12 atmospheres to the proximal portion of the PLV. MEDICATIONS 1. Versed IV. 2. Fentanyl IV. 3. Heparin IV. 4. Nitroglycerin IC. 5. Brilinta p.o. 6. ____ IV. CONTRAST Omnipaque 200 mL COMPLICATIONS None. BLOOD LOSS Less than 10 mL METHOD OF HEMOSTASIS Angio-Seal closure RESULTS HEMODYNAMICS Heart rate 43 beats per minute. Left end-diastolic pressure 12 mmHg, left ventricle 110/12, aorta 110/49/72, LEFT VENTRICULOGRAPHY Ejection fraction 45%, wall motion inferior hypokinesis, no mitral regurgitation CORONARY ANGIOGRAPHY Left main artery patent. Left descending artery has 30% in the proximal portion. V1 patent. Left circumflex artery has 20% in mid portion. OM1 is a small vessel with 40% stenosis. OM2 is patent. Right coronary is a dominant vessel with total occlusion of the proximal artery with thrombus. PDA has 60% proximal stenosis. PLV has 90% proximal stenosis. The stenosis in the proximal right coronary artery was 18 mm long, 100%, pre YULIANA flow 0, post [place] flow 3. Type C lesion. The stenosis in the PLV is 90%, lesion length 10 mm. Pre [place]UL[place] flow 0, Post [place] flow 3m post stenosis is zero. Post intervention angiography with excellent patency of the stented segment and no evidence of dissection, thrombosis or embolization. DIAGNOSES 1. ST-elevation myocardial infarction. 2. Coronary artery disease with total occlusion of the proximal right coronary artery with thrombus. 3. Severe stenosis of the posterolateral branch of the right coronary artery. 4. Successful thrombectomy, angioplasty and stenting of the proximal right coronary artery. 5. Successful angioplasty and stenting of the posterolateral branch of the right coronary artery 6. Mild left ventricular dysfunction consistent with ischemic cardiomyopathy. DISPOSITION Ms. Ceja will be monitored on telemetry after procedure. We will continue therapy with Brilinta for at least 1 year and baby aspirin indefinitely. We will also initiate aggressive modification of her cardiac risk factors. I will see her back for followup in our office after discharge. MD GALINA Raza/ /1:06 PM /6:03 PM
== END 2017-08-31 18:21 | disposition home or self-care (01) | DRG 247 ==
LOC: NEPC 09:54 → NEDA 10:04 → HCIS 11:46
PROVIDERS: ADMIT Internal Medicine Interventional Cardiology; ATTEND Internal Medicine Interventional Cardiology
PROC: 027034Z Dilation of Coronary Artery, One Artery with Drug-eluting Intraluminal Device, Percutaneous Approach (ICD-10-PCS; principal; 2017-08-30)
PROC: 4A023N7 Measurement of Cardiac Sampling and Pressure, Left Heart, Percutaneous Approach (ICD-10-PCS; 2017-08-30)
PROC: B2111ZZ Fluoroscopy of Multiple Coronary Arteries using Low Osmolar Contrast (ICD-10-PCS; 2017-08-30)
PROC: B2151ZZ Fluoroscopy of Left Heart using Low Osmolar Contrast (ICD-10-PCS; 2017-08-30)
DX: I21.19 ST elevation (STEMI) myocardial infarction involving other coronary artery of inferior wall (principal); E11.9 Type 2 diabetes mellitus without complications; I10 Essential (primary) hypertension; E78.00 Pure hypercholesterolemia, unspecified; E07.9 Disorder of thyroid, unspecified; I25.10 Atherosclerotic heart disease of native coronary artery without angina pectoris
CPT/HCPCS: 71010; 80048; 80061; 82310; 82435; 82550; 82552; 82565; 82947; 83735; 83880; 84132; 84295; 84484; 84520; 85002; 85025; 85610; 85730; 92941; 93005; 93458; C1725; C1760; C1769; C1874; C1887; C1893; C9460; G0269; J1644; J2250; J3010; J7030; Q9967